=== PATIENT | female | born 1985 | race Caucasian/White ===

== ENCOUNTER → 2020-03-31 | Outpatient (CLI) | payer OTHER ==
--- NOTE | 2020-04-01 03:14 | REP ---
INDICATION: SACROCOCCYGEAL DISORDERS, NOT ELSEWHERE CLASSIFIED. COMPARISON: None. TECHNIQUE: Frontal view of the pelvis with neutral and frog-lateral views of the right and left hip. FINDINGS: There is no evidence for acute fracture or dislocation. Hips demonstrates subtle increased sclerosis to the acetabular roof with minimal joint space narrowing and very subtle early marginal spurring. Surrounding soft tissues are unremarkable. IMPRESSION: Mild symmetric age-related changes. <Electronically signed by Barry Braun > 04/01/20 [id number]
--- NOTE | 2020-04-01 03:16 | REP ---
INDICATION: SACROCOCCYGEAL DISORDERS, NOT ELSEWHERE CLASSIFIED COMPARISON: None. TECHNIQUE: AP, lateral, bilateral oblique, and coned-down views of the lumbar spine. FINDINGS: Alignment and lordosis maintained. Vertebral bodies are intact. Disc spaces are relatively normal/age-appropriate. No acute fracture/compression injury or subluxation. No obvious spondylolysis or spondylolisthesis. IMPRESSION: Normal age-appropriate lumbosacral Spine series. <Electronically signed by Barry Braun > 04/01/20 [id number]
== END ==
LOC: M RAD 11:41
PROVIDERS: ATTEND Internal Medicine
DX: M53.3 Sacrococcygeal disorders, not elsewhere classified (principal)

== ENCOUNTER → 2020-03-31 | Outpatient (REF) | payer OTHER ==
[2020-03-31 14:01] LABS: C REACTIVE PROTEIN QUANTITATIV 0.38 MG/DL (0.00-0.30); COMPLEMENT C3 142 MG/DL (90-180); COMPLEMENT C4 21 MG/DL (10-40); CPK CREATINE PHOSPHOKINASE 110 U/L (26-192); RHEUMATOID FACTOR QUANT < 10.0 IU/ML (<15.0)
[2020-03-31 14:04] LABS: HEPATITIS B SURFACE ANTIGEN NEGATIVE (NEGATIVE)
[2020-03-31 14:32] LABS: HEPATITIS C VIRUS ABY INDEX < 0.0 INDEX (<0.8)
[2020-04-06 18:08] LABS: ANA (HEP2) Negative (.); CYCLIC CITRULLINATED PEPTIDE 13 units (0-19); HEPATITIS B CORE ANTIBODY IGG Negative (Negative); HLA-B27 Negative (.); Lyme Disease IgG/IgM Antibodie <0.91 ISR (0.00-0.90); Lyme Disease IgM Ab Quantitati <0.80 index (0.00-0.79); SSA SJOGRENS A <0.2 AI (0.0-0.9); SSB SJOGRENS B <0.2 AI (0.0-0.9)
== END ==
LOC: M SFHCRHEU 11:01
PROVIDERS: ATTEND Internal Medicine
DX: M53.3 Sacrococcygeal disorders, not elsewhere classified (principal); M25.50 Pain in unspecified joint; M35.00 Sjogren syndrome, unspecified
CPT/HCPCS: 72110; 73521; 81374; 82550; 85652; 86038; 86140; 86160; 86200; 86235; 86255; 86431; 86617; 86704; 86803; 87340; G0463

== ENCOUNTER → 2020-04-24 | Outpatient (CLI) | payer OTHER ==
--- NOTE | 2020-04-24 13:08 | REP ---
INDICATION: SACROILIAC PAIN. Left leg numbness. COMPARISON: Comparison radiographs March 31, 2020. TECHNIQUE: Axial, oblique coronal, and sagittal imaging planes utilized. T1 and T2 weighted scans are included with without fat saturation. Coronal images parallel to the body of the sacrum are included. FINDINGS: The uterus is surgically absent. Cortical and medullary bone signal intensity is normal in the sacrum and coccyx. No displacement or deformity is seen. The lumbosacral thecal sac is remarkable for a left central focal disc protrusion at L4-5 producing thecal sac compression. Moderate central canal stenosis is felt to be present at L4-5 as result of the disc protrusion and developmentally short pedicles. This could be further evaluated with MRI lumbar spine study. The sacral spinal canal is unremarkable. There is no evidence to suggest sacroiliitis or sacral fracture. Presacral soft tissues are not widened. Retro sacral soft tissues are unremarkable. There is diverticulosis in the sigmoid colon without MR evidence to suggest diverticulitis. The ovary sits somewhat cyst superiorly and laterally in the pelvis but are morphologically normal. No free fluid is seen. No abnormality is noted in the perineum. IMPRESSION: There is a left central disc protrusion noted at the L4-5 disc level in the lower lumbar spine. This produces central canal stenosis. Consider MRI lumbar spine. Otherwise negative MRI sacrum and SI joints. <Electronically signed by Shaw Cortes > 04/24/20 [id number]
== END ==
LOC: M PLARAD 10:49
PROVIDERS: ATTEND Internal Medicine
DX: M51.26 Other intervertebral disc displacement, lumbar region (principal); M53.3 Sacrococcygeal disorders, not elsewhere classified; M48.061 Spinal stenosis, lumbar region without neurogenic claudication

== ENCOUNTER → 2020-05-13 | Outpatient (CLI) | payer OTHER ==
--- NOTE | 2020-05-13 12:48 | REPVR ---
PROCEDURE INFORMATION: Exam: MR Lumbar Spine Without Contrast. Exam date and time: 05/13/2020 12:10 PM Age: 34 years old Clinical indication: Low back pain; Patient HX: Lbp; Additional info: Stenosis TECHNIQUE: Imaging protocol: Multiplanar magnetic resonance images of the lumbar spine without intravenous contrast. COMPARISON: CR Spine. Lumbosacral, complete 03/31/2020 11:57 AM FINDINGS: Vertebrae: No acute compression fracture is seen. Bone marrow signal is within normal limits. Spinal cord: The conus medullaris terminates at the L1 level. There is no evidence of arachnoiditis or cauda equina compression. L1-L2: Mild facet arthropathy is present. There is no significant spinal canal or neural foraminal stenosis. L2-L3: There is mild diffuse circumferential disc bulging and facet arthropathy. This is causing mild spinal canal stenosis and mild bilateral neural foraminal narrowing. L3-L4: There is mild diffuse circumferential disc bulging and facet arthropathy. This is causing mild spinal canal stenosis and mild bilateral neural foraminal narrowing. L4-L5: There is moderate diffuse circumferential disc bulging with a central annular fissure and associated shallow central disc protrusion. Moderate thickening of the ligamentum flavum and facet arthropathy is also present. This is causing moderate spinal canal stenosis, moderate narrowing of the subarticular recesses, and moderate bilateral neural foraminal narrowing. L5-S1: There is mild diffuse circumferential disc bulging and facet arthropathy. There is no spinal canal or neural foraminal stenosis. Soft tissues: Unremarkable. IMPRESSION: Degenerative changes of the lumbar spine, most pronounced at L4-L5. See discussion above. Electronically signed by: Les Newsome On 05/13/2020 12:48:51 PM
== END ==
LOC: M RAD 10:59
PROVIDERS: ATTEND Internal Medicine
DX: M48.062 Spinal stenosis, lumbar region with neurogenic claudication (principal)

== ENCOUNTER 2020-12-08 03:59 | Emergency (ER) | payer OTHER ==
[~2020-12-08] VITALS: Ht 170.2 cm; Wt 96.3 kg
[2020-12-08 04:01] VITALS: BP 120/59
[2020-12-08] MEDS ORDERED: CYMB1CAP5 PO (04:13)
[2020-12-08] MEDS ORDERED: DICY20TA11 PO (04:13)
== END 2020-12-08 05:15 | disposition left against medical advice (07) ==
LOC: M ED 03:59
DX: Z53.21 Procedure and treatment not carried out due to patient leaving prior to being seen by health care provider (principal)